=== PATIENT | female | born 1940 | race Caucasian/White ===

== ENCOUNTER → 2017-09-30 | Outpatient (CLI) | payer MEDICARE, OTHER ==
[~2017-09-30] MED LIST: ASPI81EC PO; ATOR10; CALCIUM/MAG/VIT D PO; CLOP75; CRANBERRY PO; FISH OIL PO; FLUT110OIA; FLUT110OIA IH; K-Tab10 MEQ; MAGOXI400 PO; Macrobid 100 M100 MG; TRIA55OI; TRIHYD5075 PO; VITAMIN C PO; VITAMIN D PO; [UNRECOGNIZED DRUG - CODE] PO
== END ==
LOC: LAB SHORT 17:00 → OLS 17:00
PROVIDERS: Obstetrics & Gynecology Gynecology
DX: Z12.4 Encounter for screening for malignant neoplasm of cervix (principal); N89.8 Other specified noninflammatory disorders of vagina
CPT/HCPCS: 87070; 87205; 87624; G0123

== ENCOUNTER → 2018-11-02 | Outpatient (CLI) | payer MEDICARE, OTHER ==
[~2018-11-02] MED LIST changes: +ACET325; -ATOR10; +ATOR10 PO; +Dyazide 37.5-21 EACH PO; -FLUT110OIA; +Flovent 110 MCG12 GM INH; -K-Tab10 MEQ; +K-Tab10 MEQ PO; +NASACORT10.8 ML; +Tobramycin60 MG/50 M IV
[2018-11-02 17:32] LABS: Source, Urine Catheter
[2018-11-02 18:03] LABS: Bilirubin, Urine Neg (Neg); Blood, Urine 2+ (Neg); Glucose Qualitative, Urine Neg (Neg); Ketones, Urine Neg (Neg); Leukocyte Esterase, Urine 3+ (Neg); Nitrite, Urine Neg (Neg); Protein, Urine 2+ (Neg); Urobilinogen, Urine NORM (Normal); pH, Urine 6.5 (5.0-8.0)
[2018-11-02 18:16] LABS: Color, Urine Yellow (P-Yellow)
[2018-11-02 18:17] LABS: Appearance, Urine Hazy (Clear)
[2018-11-02 18:23] LABS: White Blood Cells, Urine TNTC /hpf (0-5)
[2018-11-02 18:24] LABS: Bacteria Mod /hpf; Squamous Epithelial Cells Not Seen /hpf (Few); Transitional Epithelial Cells Rare /hpf (0-Rare)
[2018-11-04 15:06] LABS: HPV 16 Negative (Negative); HPV 18 Negative (Negative); HPV OTHER HR TYPES Negative (Negative)
== END | disposition home or self-care (01) ==
LOC: LAB SHORT 17:30 → LAB 17:30
PROVIDERS: Obstetrics & Gynecology Gynecology
DX: R30.0 Dysuria (principal); Z91.89 Other specified personal risk factors, not elsewhere classified
CPT/HCPCS: 81001; 87077; 87086; 87186; 87624; G0123

== ENCOUNTER 2018-11-06 13:08 | Day surgery (SDC) | payer MEDICARE, OTHER ==
[~2018-11-06] VITALS: Ht 157.5 cm; Wt 58.2 kg
[~2018-11-06 13:08] MED LIST changes: -ACET325; -Dyazide 37.5-21 EACH PO; -NASACORT10.8 ML; -Tobramycin60 MG/50 M IV
[2018-11-06] MEDS ORDERED: NASACORT10.8 ML (15:39)
[2018-11-06] MEDS ORDERED: Dyazide 37.5-21 EACH PO (15:40)
[2018-11-06] MEDS ORDERED: ACET325 (15:47)
== END 2018-11-06 15:54 | disposition home or self-care (01) ==
LOC: ATC 13:08
DX: N39.0 Urinary tract infection, site not specified (principal); B96.5 Pseudomonas (aeruginosa) (mallei) (pseudomallei) as the cause of diseases classified elsewhere; I10 Essential (primary) hypertension; G43.909 Migraine, unspecified, not intractable, without status migrainosus; J45.909 Unspecified asthma, uncomplicated; E78.5 Hyperlipidemia, unspecified; K21.9 Gastro-esophageal reflux disease without esophagitis; Z79.899 Other long term (current) drug therapy; Z79.01 Long term (current) use of anticoagulants; Z88.8 Allergy status to other drugs, medicaments and biological substances; Z88.1 Allergy status to other antibiotic agents; Z88.6 Allergy status to analgesic agent; Z87.891 Personal history of nicotine dependence
CPT/HCPCS: 82565; J3260

== ENCOUNTER 2018-11-07 14:58 | Day surgery (SDC) | payer MEDICARE, OTHER ==
[~2018-11-07] VITALS: Ht 157.5 cm; Wt 58.0 kg
[~2018-11-07 14:58] MED LIST changes: +ACET325; +Dyazide 37.5-21 EACH PO; +NASACORT10.8 ML
--- NOTE | 2018-11-07 15:29 | NUR ---
TOBRA LEVEL DRAWN USING 23 G BUTTERFLY, ATTEMPTED TO GET LABS WITH IV START, IV FLUSHES EASILY BUT IS DIFFICULT TO PULL ANY BLOOD BACK.
[2018-11-07 15:50] LABS: Tobramycin, Trough 0.6 ug/mL (0.0-1.9)
== END 2018-11-07 16:38 | disposition home or self-care (01) ==
LOC: ATC 14:58
PROVIDERS: Internal Medicine Infectious Disease
DX: N39.0 Urinary tract infection, site not specified (principal); B96.5 Pseudomonas (aeruginosa) (mallei) (pseudomallei) as the cause of diseases classified elsewhere; I10 Essential (primary) hypertension; G43.909 Migraine, unspecified, not intractable, without status migrainosus; J45.909 Unspecified asthma, uncomplicated; E78.5 Hyperlipidemia, unspecified; K21.9 Gastro-esophageal reflux disease without esophagitis; Z79.899 Other long term (current) drug therapy; Z79.01 Long term (current) use of anticoagulants; Z88.8 Allergy status to other drugs, medicaments and biological substances; Z88.1 Allergy status to other antibiotic agents; Z88.6 Allergy status to analgesic agent; Z87.891 Personal history of nicotine dependence
CPT/HCPCS: 80200; 96365; J3260

== ENCOUNTER 2018-11-08 14:51 | Day surgery (SDC) | payer MEDICARE, OTHER ==
[2018-11-09] MEDS ORDERED: Tobramycin60 MG/50 M IV (17:11)
== END 2018-11-08 15:44 | disposition home or self-care (01) ==
LOC: ATC 14:51
DX: N39.0 Urinary tract infection, site not specified (principal); B96.5 Pseudomonas (aeruginosa) (mallei) (pseudomallei) as the cause of diseases classified elsewhere
CPT/HCPCS: 96365; J3260

== ENCOUNTER 2018-11-09 00:08 | Day surgery (SDC) | payer MEDICARE, OTHER ==
[2018-11-09 15:43] LABS: Creatinine, Blood 0.78 mg/dL (0.40-1.00); Tobramycin, Trough 0.6 ug/mL (0.0-1.9)
[2018-11-09] MEDS ORDERED: Tobramycin60 MG/50 M IV (17:11)
== END 2018-11-09 16:40 | disposition home or self-care (01) ==
LOC: ATC 00:08
PROVIDERS: Obstetrics & Gynecology Gynecology
DX: N39.0 Urinary tract infection, site not specified (principal); B96.5 Pseudomonas (aeruginosa) (mallei) (pseudomallei) as the cause of diseases classified elsewhere; I10 Essential (primary) hypertension; J45.909 Unspecified asthma, uncomplicated; G43.909 Migraine, unspecified, not intractable, without status migrainosus; E78.5 Hyperlipidemia, unspecified; K21.9 Gastro-esophageal reflux disease without esophagitis; Z79.899 Other long term (current) drug therapy; Z79.01 Long term (current) use of anticoagulants; Z88.8 Allergy status to other drugs, medicaments and biological substances; Z88.1 Allergy status to other antibiotic agents; Z88.6 Allergy status to analgesic agent; Z87.891 Personal history of nicotine dependence
CPT/HCPCS: 80200; 82565; 96365; J3260

== ENCOUNTER 2018-11-10 00:14 | Day surgery (SDC) | payer MEDICARE, OTHER ==
[~2018-11-10 00:14] MED LIST changes: +Tobramycin60 MG/50 M IV
== END 2018-11-10 16:06 | disposition home or self-care (01) ==
LOC: ATC 00:14
DX: N39.0 Urinary tract infection, site not specified (principal); B96.5 Pseudomonas (aeruginosa) (mallei) (pseudomallei) as the cause of diseases classified elsewhere; M85.80 Other specified disorders of bone density and structure, unspecified site; N95.1 Menopausal and female climacteric states; I10 Essential (primary) hypertension; B00.9 Herpesviral infection, unspecified; E78.5 Hyperlipidemia, unspecified; Z96.652 Presence of left artificial knee joint; Z79.899 Other long term (current) drug therapy; Z88.8 Allergy status to other drugs, medicaments and biological substances; Z88.6 Allergy status to analgesic agent
CPT/HCPCS: 96365; J3260

== ENCOUNTER 2018-11-11 14:48 | Day surgery (SDC) | payer MEDICARE, OTHER ==
[2018-11-11 15:42] LABS: Creatinine, Blood 0.81 mg/dL (0.40-1.00); Tobramycin, Trough 0.8 ug/mL (0.0-1.9)
== END 2018-11-11 16:52 | disposition home or self-care (01) ==
LOC: ATC 14:48
PROVIDERS: Obstetrics & Gynecology Gynecology
DX: N95.2 Postmenopausal atrophic vaginitis (principal); N95.1 Menopausal and female climacteric states; Z91.89 Other specified personal risk factors, not elsewhere classified; M85.80 Other specified disorders of bone density and structure, unspecified site; R30.0 Dysuria; I10 Essential (primary) hypertension; A60.00 Herpesviral infection of urogenital system, unspecified; E78.5 Hyperlipidemia, unspecified; K21.9 Gastro-esophageal reflux disease without esophagitis; Z79.899 Other long term (current) drug therapy; Z79.51 Long term (current) use of inhaled steroids; Z88.8 Allergy status to other drugs, medicaments and biological substances; Z87.891 Personal history of nicotine dependence
CPT/HCPCS: 80200; 82565; 96365; J3260

== ENCOUNTER 2018-11-12 01:16 | Day surgery (SDC) | payer MEDICARE, OTHER | END 2018-11-12 15:57 | disposition home or self-care (01) | LOC: ATC 01:16 | DX: N95.2 Postmenopausal atrophic vaginitis (principal); N95.1 Menopausal and female climacteric states; M85.80 Other specified disorders of bone density and structure, unspecified site; I10 Essential (primary) hypertension; G43.909 Migraine, unspecified, not intractable, without status migrainosus; J45.909 Unspecified asthma, uncomplicated; E78.5 Hyperlipidemia, unspecified; Z79.899 Other long term (current) drug therapy; Z79.01 Long term (current) use of anticoagulants; Z88.1 Allergy status to other antibiotic agents; Z88.6 Allergy status to analgesic agent; Z88.8 Allergy status to other drugs, medicaments and biological substances; Z87.891 Personal history of nicotine dependence | CPT/HCPCS: 96365; J3260 ==

== ENCOUNTER → 2019-06-03 | Outpatient (CLI) | payer MEDICARE, OTHER | END | disposition home or self-care (01) | LOC: LAB EV 17:49 → LAB SHORT 17:49 | DX: N39.0 Urinary tract infection, site not specified (principal) | CPT/HCPCS: 87077; 87086; 87186 ==

== ENCOUNTER → 2020-02-06 | Outpatient (CLI) | payer MEDICARE, OTHER | END | disposition home or self-care (01) | LOC: LAB EV 08:30 → LAB SHORT 08:30 | DX: R35.0 Frequency of micturition (principal) | CPT/HCPCS: 87077; 87086; 87186 ==

== ENCOUNTER → 2021-05-22 | Outpatient (CLI) | payer MEDICARE | END | disposition home or self-care (01) | LOC: LAB SHORT 16:24 | DX: N39.0 Urinary tract infection, site not specified (principal) | CPT/HCPCS: 87077; 87086; 87186 ==

== ENCOUNTER → 2021-10-17 | Outpatient (CLI) | payer MEDICARE | END | disposition home or self-care (01) | LOC: LAB SHORT 13:22 | DX: N39.0 Urinary tract infection, site not specified (principal) | CPT/HCPCS: 87077; 87086; 87186 ==

== ENCOUNTER 2021-11-02 08:00 | Day surgery (SDC) | payer MEDICARE ==
[2021-11-02 09:06] LABS: Albumin, Blood 3.9 g/dL (3.4-5.0); Anion Gap 7 mmol/L (6-16); Blood Urea Nitrogen 33 mg/dL (8-24); Bun/Creatinine Ratio 39.1 (12.0-20.0); CO2, Blood 28 mmol/L (21-32); Calcium, Blood 8.9 mg/dL (8.5-10.1); Chloride, Blood 106 mmol/L (98-108); Creatinine, Blood 0.84 mg/dL (0.40-1.00); Glomerular Filtration Rate 69 (60-); Glucose, Blood 111 mg/dL (70-99); Phosphorus, Blood 3.2 mg/dL (2.5-4.9); Potassium, Blood 3.7 mmol/L (3.5-5.5); Sodium, Blood 141 mmol/L (136-145)
== END 2021-11-02 10:25 | disposition home or self-care (01) ==
LOC: ATC 08:00
PROVIDERS: Family Medicine
DX: N39.0 Urinary tract infection, site not specified (principal); B96.5 Pseudomonas (aeruginosa) (mallei) (pseudomallei) as the cause of diseases classified elsewhere; I10 Essential (primary) hypertension; K21.9 Gastro-esophageal reflux disease without esophagitis; Z88.1 Allergy status to other antibiotic agents; Z88.8 Allergy status to other drugs, medicaments and biological substances; Z88.6 Allergy status to analgesic agent
CPT/HCPCS: 80069; J3260

== ENCOUNTER 2021-11-03 00:37 | Day surgery (SDC) | payer MEDICARE ==
[2021-11-03 08:31] LABS: Creatinine, Blood 0.7 mg/dL (0.40-1.00)
== END 2021-11-03 09:38 | disposition home or self-care (01) ==
LOC: ATC 00:37
PROVIDERS: Family Medicine
DX: N39.0 Urinary tract infection, site not specified (principal); B96.5 Pseudomonas (aeruginosa) (mallei) (pseudomallei) as the cause of diseases classified elsewhere
CPT/HCPCS: 80200; 82565; J3260

== ENCOUNTER 2021-11-05 04:50 | Day surgery (SDC) | payer MEDICARE ==
[~2021-11-05] VITALS: Ht 157.5 cm; Wt 59.5 kg
[2021-11-05 15:18] LABS: Tobramycin, Trough 1.8 ug/mL (0.0-1.9)
== END 2021-11-05 15:26 | disposition home or self-care (01) ==
LOC: ATC 04:50
PROVIDERS: Family Medicine
DX: N39.0 Urinary tract infection, site not specified (principal); B96.5 Pseudomonas (aeruginosa) (mallei) (pseudomallei) as the cause of diseases classified elsewhere; E78.5 Hyperlipidemia, unspecified; I10 Essential (primary) hypertension; K21.9 Gastro-esophageal reflux disease without esophagitis; J45.909 Unspecified asthma, uncomplicated; Z79.899 Other long term (current) drug therapy
CPT/HCPCS: 36415; 80200; 82565; 99211

== ENCOUNTER 2021-11-06 01:17 | Day surgery (SDC) | payer MEDICARE | END 2021-11-06 15:39 | disposition home or self-care (01) | LOC: ATC 01:17 | DX: N39.0 Urinary tract infection, site not specified (principal); B96.5 Pseudomonas (aeruginosa) (mallei) (pseudomallei) as the cause of diseases classified elsewhere; I10 Essential (primary) hypertension; E78.5 Hyperlipidemia, unspecified; K21.9 Gastro-esophageal reflux disease without esophagitis; J45.909 Unspecified asthma, uncomplicated; Z88.1 Allergy status to other antibiotic agents; Z88.6 Allergy status to analgesic agent | CPT/HCPCS: 96365; J3260 ==

== ENCOUNTER → 2022-05-22 | Outpatient (CLI) | payer MEDICARE | END | disposition home or self-care (01) | LOC: LAB SHORT 17:18 | DX: N39.0 Urinary tract infection, site not specified (principal) | CPT/HCPCS: 87077; 87086; 87186 ==

== ENCOUNTER → 2022-10-21 | Outpatient (CLI) | payer MEDICARE | END | disposition home or self-care (01) | LOC: LAB 11:55 → LAB SHORT 11:55 | DX: R82.998 Other abnormal findings in urine (principal) | CPT/HCPCS: 87077; 87086; 87186 ==

== ENCOUNTER → 2023-01-27 | Outpatient (CLI) | payer MEDICARE | END | disposition home or self-care (01) | LOC: LAB SHORT 10:50 → LAB 10:50 | DX: J45.41 Moderate persistent asthma with (acute) exacerbation (principal); N34.2 Other urethritis | CPT/HCPCS: 87070; 87077; 87086; 87102; 87186; 87205 ==

== ENCOUNTER → 2023-06-05 | Outpatient (CLI) | payer MEDICARE | END | disposition home or self-care (01) | LOC: LAB 17:06 → LAB SHORT 17:06 | DX: N34.2 Other urethritis (principal) | CPT/HCPCS: 87077; 87086; 87186 ==